=== PATIENT | female | born 1960 | race Caucasian/White ===

== ENCOUNTER 2019-06-04 10:02 | Emergency (ER) | payer OTHER ==
[2019-06-04] MEDS ORDERED: traMADol 50 MG TAB PO ONE (11:27)
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
[2019-06-04] MEDS ORDERED: MORPHINE 2 MG/1 ML INJ IV ONE (12:48)
[2019-06-04] MEDS ORDERED: ONDANSETRON 4 MG/2 ML INJ IV ONE (12:48)
[2019-06-04 13:36] VITALS: BP 116/76
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
[2019-06-04 14:53] LABS: Hematocrit 40.1 % (30.3-42.9); Hemoglobin 12.7 gm/dl (10.1-14.3); Mean Corpuscular HGB Conc 32 % (30-34); Mean Corpuscular Volume 67 fl (79-97); Platelet Count 270 K/mm3 (140-440); Red Blood Count 5.98 M/mm3 (3.65-5.03); Red Cell Distribution Width 14.1 % (13.2-15.2)
[2019-06-04 15:02] LABS: INR 0.88 (0.87-1.13)
[2019-06-04 15:03] LABS: Partial Thromboplastin Time 38.8 Sec. (24.2-36.6)
[2019-06-04 15:05] LABS: Alanine Aminotransferase 14 units/L (7-56); Albumin 4.3 g/dL (3.9-5); BUN/Creatinine Ratio 33; Blood Urea Nitrogen 13 mg/dL (7-17); Calcium 9.8 mg/dL (8.4-10.2); Hemolysis Index 4
== END 2019-06-04 18:02 | disposition home or self-care (01) ==
LOC: ED 10:02
DX: S52.302A Unspecified fracture of shaft of left radius, initial encounter for closed fracture (principal); S52.612A Displaced fracture of left ulna styloid process, initial encounter for closed fracture; V49.49XA Driver injured in collision with other motor vehicles in traffic accident, initial encounter; Y93.89 Activity, other specified; Y92.488 Other paved roadways as the place of occurrence of the external cause; Y99.8 Other external cause status
CPT/HCPCS: 36415; 73060; 73090; 73100; 80053; 85027; 85610; 85730; 96374; 96375; 99284; J2270; J2405